=== PATIENT | male | born 1965 | race Caucasian/White ===

== ENCOUNTER 2024-05-12 00:19 | Emergency (ER) | payer SELFPAY ==
[2024-05-12] VITALS (46 sets, daily range): BP systolic 123–216; BP diastolic 80–103; PULSE 61–157; TEMP 36.5; O2SAT 92–100; BMI 28.3
--- NOTE | 2024-05-12 00:21 | CT_ITS ---
The [address] [address] Patient Name: ARLIN ZELAYA MRN: [facility]:[id number] date: 1965 Sex: M Assigned Patient Location: ED.MAIN Current Patient Location: ED.MAIN Accession/Order Number: [id number] Exam Date: 05/12/2024 00:40 Report Date: 05/12/2024 03:26 At the request of: KRUNAL VILLEDA Procedure: CT angio head EXAM: CT angio head, CT angio neck CT angio head, CT angio neck INDICATION:58 years old; right-sided weakness. Abnormality seen on noncontrast head CT. TECHNIQUE: CT angiogram of the head and neck was performed. Coronal, sagittal and 3-D reformats were created and reviewed. IV contrast Omnipaque 350 100mL. No complications . Carotid stenosis measurements were made according to the NASCET criteria. Ionizing radiation dose reduced via iterative reconstruction/FBP blend and body size kV/mA adjustment. COMPARISON: Head CT performed prior to this examination. The study is not diagnostic secondary to difficulty with timing of the bolus. Contrast is seen within the pulmonary circulation with inadequate contrast in the aortic arch and extracranial vessels, and inadequate opacification of the intracranial vessels although contrast is seen within the intracranial arteries. FINDINGS: NECK FINDINGS: AORTIC ARCH: Not diagnostically evaluated due to the absence of contrast. Vascular calcifications are present. ANTERIOR CIRCULATION: Inadequately evaluated due to the absence of contrast. There is calcific plaque in the carotid bifurcation on the left. There are multiple surgical clips in the region of the right carotid bifurcation. 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 Extensive calcific plaque is seen within the V1 and proximal V2 segments of vertebral arteries. There is inadequate opacification. No gross evidence of occlusion is seen. DEVELOPMENTAL ANOMALIES: None. OTHER: No thyroid nodule or adenopathy. HEAD BRAIN: Please see the report of the noncontrast head CT. ANTERIOR CIRCULATION: Allowing for the limitations examination, there is calcific plaque in the intrapetrous portions of both ICA. There is nonvisualization of contrast within the intrapetrous portion on the right. Calcific plaque is seen in the intracavernous and supraclinoid portions bilaterally. There is contrast seen within the intracranial termini, more dense on the left than the right. Question of retrograde filling on the right. Cross filling from left to right. A1 segments are grossly patent. M1 segments are grossly patent. However, evaluation the distal branches is suboptimal. Allowing for artifacts, there is no gross evidence of intraluminal thrombus in the region of the MCA on the left in the area of previously described abnormality. However, inadequate complete opacification is seen. There is inadequate opacification on the right in the distal branches.. POSTERIOR CIRCULATION: Calcific plaque in the V4 segments. V4 segments are grossly patent. PICA patent on the left. AICA patent on the right. Basilar artery and basilar tip are patent. SCA patent. Posterior communicating artery patent on the right. Question stenosis versus inadequate opacification of the P2 segment on the left. Distal branches are poorly opacified. DEVELOPMENTAL ANOMALIES: None. OTHER: No gross evidence of pathologic enhancement. The study is not adequate for evaluation the intracranial veins. CT/CT angio head IMPRESSION: 1. Limited examination due to difficulty with bolus timing. There is inadequate opacification of the extracranial vessels. There are findings consistent with postsurgical changes in the right carotid bifurcation with occlusion of the right cervical ICA which appears to reconstitute secondary to retrograde filling from the right posterior communicating artery and cross filling from the left than the right. 2. Dense calcific plaque in the carotid bifurcation on the left, in the V1 and proximal V2 segments of both vertebral arteries, and in the intracranial portions of the ICA bilaterally. 3. Inadequate opacification the intracranial vessels. However, on the left, no gross evidence of large vessel occlusion is seen in the proximal left MCA distribution which would correlate to the findings in the noncontrast head CT. A telephone call regarding the findings in examination was made to and acknowledged by Dr. Villeda in the emergency department at 3:20 AM on 05/12/2024. The patient was transferred to an outside institution for further care. Electronically authenticated by: SEA BROTHERS Date: 05/12/2024 03:26
--- NOTE | 2024-05-12 00:21 | XR_ITS ---
The [address] [address] Patient Name: ARLIN ZELAYA MRN: [id number] date: 1965 Sex: M Assigned Patient Location: ED.MAIN Current Patient Location: ED.MAIN Accession/Order Number: [id number] Exam Date: 05/12/2024 00:40 Report Date: 05/12/2024 02:02 At the request of: KRUNAL BROWN Procedure: XR chest 1V EXAMINATION:XR chest 1V INDICATION:stroke COMPARISON:10/16/2021 TECHNIQUE:2 frontal views of the chest are submitted. FINDINGS: The cardiomediastinal silhouette is stable. Patient is status post median sternotomy. The pulmonary vascularity is within normal limits. No acute airspace disease has developed in the lungs. There is no costophrenic angle blunting. XR/XR chest 1V IMPRESSION: No acute cardiopulmonary process. Electronically authenticated by: SONNY MAGAÑA Date: 05/12/2024 02:02
--- NOTE | 2024-05-12 00:21 | CT_ITS ---
The [address] [address] Patient Name: ARLIN ZELAYA MRN: [facility]:[id number] date: 1965 Sex: M Assigned Patient Location: ED.MAIN Current Patient Location: ED.MAIN Accession/Order Number: [id number] Exam Date: 05/12/2024 00:40 Report Date: 05/12/2024 03:26 At the request of: KRUNAL VILLEDA Procedure: CT angio neck EXAM: CT angio head, CT angio neck CT angio head, CT angio neck INDICATION:58 years old; right-sided weakness. Abnormality seen on noncontrast head CT. TECHNIQUE: CT angiogram of the head and neck was performed. Coronal, sagittal and 3-D reformats were created and reviewed. IV contrast Omnipaque 350 100mL. No complications . Carotid stenosis measurements were made according to the NASCET criteria. Ionizing radiation dose reduced via iterative reconstruction/FBP blend and body size kV/mA adjustment. COMPARISON: Head CT performed prior to this examination. The study is not diagnostic secondary to difficulty with timing of the bolus. Contrast is seen within the pulmonary circulation with inadequate contrast in the aortic arch and extracranial vessels, and inadequate opacification of the intracranial vessels although contrast is seen within the intracranial arteries. FINDINGS: NECK FINDINGS: AORTIC ARCH: Not diagnostically evaluated due to the absence of contrast. Vascular calcifications are present. ANTERIOR CIRCULATION: Inadequately evaluated due to the absence of contrast. There is calcific plaque in the carotid bifurcation on the left. There are multiple surgical clips in the region of the right carotid bifurcation. 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 Extensive calcific plaque is seen within the V1 and proximal V2 segments of vertebral arteries. There is inadequate opacification. No gross evidence of occlusion is seen. DEVELOPMENTAL ANOMALIES: None. OTHER: No thyroid nodule or adenopathy. HEAD BRAIN: Please see the report of the noncontrast head CT. ANTERIOR CIRCULATION: Allowing for the limitations examination, there is calcific plaque in the intrapetrous portions of both ICA. There is nonvisualization of contrast within the intrapetrous portion on the right. Calcific plaque is seen in the intracavernous and supraclinoid portions bilaterally. There is contrast seen within the intracranial termini, more dense on the left than the right. Question of retrograde filling on the right. Cross filling from left to right. A1 segments are grossly patent. M1 segments are grossly patent. However, evaluation the distal branches is suboptimal. Allowing for artifacts, there is no gross evidence of intraluminal thrombus in the region of the MCA on the left in the area of previously described abnormality. However, inadequate complete opacification is seen. There is inadequate opacification on the right in the distal branches.. POSTERIOR CIRCULATION: Calcific plaque in the V4 segments. V4 segments are grossly patent. PICA patent on the left. AICA patent on the right. Basilar artery and basilar tip are patent. SCA patent. Posterior communicating artery patent on the right. Question stenosis versus inadequate opacification of the P2 segment on the left. Distal branches are poorly opacified. DEVELOPMENTAL ANOMALIES: None. OTHER: No gross evidence of pathologic enhancement. The study is not adequate for evaluation the intracranial veins. CT/CT angio neck IMPRESSION: 1. Limited examination due to difficulty with bolus timing. There is inadequate opacification of the extracranial vessels. There are findings consistent with postsurgical changes in the right carotid bifurcation with occlusion of the right cervical ICA which appears to reconstitute secondary to retrograde filling from the right posterior communicating artery and cross filling from the left than the right. 2. Dense calcific plaque in the carotid bifurcation on the left, in the V1 and proximal V2 segments of both vertebral arteries, and in the intracranial portions of the ICA bilaterally. 3. Inadequate opacification the intracranial vessels. However, on the left, no gross evidence of large vessel occlusion is seen in the proximal left MCA distribution which would correlate to the findings in the noncontrast head CT. A telephone call regarding the findings in examination was made to and acknowledged by Dr. Villeda in the emergency department at 3:20 AM on 05/12/2024. The patient was transferred to an outside institution for further care. Electronically authenticated by: SEA BROTHERS Date: 05/12/2024 03:26
--- NOTE | 2024-05-12 00:22 | CT_ITS ---
The [address] [address] Patient Name: ARLIN ZELAYA MRN: [facility]:[id number] date: 1965 Sex: M Assigned Patient Location: ER Current Patient Location: ER Accession/Order Number: [id number] Exam Date: 05/12/2024 00:22 Report Date: 05/12/2024 00:43 At the request of: KRUNAL VILLEDA Procedure: CT stroke head/brain wo con EXAM: CT stroke head/brain wo con INDICATION: 58 years old; Male. Evaluate for infarction. TECHNIQUE: CT Head (ax/cor/sag reformats). Ionizing radiation dose reduced via iterative reconstruction/FBP blend and body size kV/mA adjustment. Comparison: None Motion artifacts degrade individual images. FINDINGS: POSTOPERATIVE CHANGES: None. BRAIN PARENCHYMA: No intraparenchymal or extra-axial hemorrhage. No mass effect. No midline shift or herniation. Patchy low-density is seen in the white matter without mass effect. VENTRICLES/EXTRA-AXIAL SPACES: Normal for patient's age. SINUSES/MASTOIDS: Visualized paranasal sinuses are clear. Nasal septal deviation to the right with spur formation. Mastoids and middle ears are clear. MSK: No displaced or depressed calvarial fracture. OTHER: There is asymmetric hyperdensity noted within branches of the left MCA distal to the bifurcation. This is best seen on images 19-22/series 6. Patient is scheduled for CT angiogram for further evaluation. CT/CT stroke head/brain wo con IMPRESSION: 1. Asymmetric hyperdensity within branches of the left MCA distal to the bifurcation. The appearance is consistent with intraluminal thrombus. A CT angiogram has been ordered but has not been performed at the time of this examination. 2. Nonspecific white matter changes. If there is concern for acute infarction, then MRI including diffusion imaging would be more sensitive for further evaluation. A telephone call regarding the findings in examination was made to and acknowledged by Dr. Villeda in the emergency department at 12:40 AM on 05/12/2024. Electronically authenticated by: SEA BROTHERS Date: 05/12/2024 00:43
--- NOTE | 2024-05-12 00:25 | ED.GENADUL1 ---
HPI HPI - General Adult General Chief complaint: Neuro Symptoms/Deficit Stated complaint: POSSIBLE STROKE Time Seen by Provider: 05/12/24 00:21 History of Present Illness HPI narrative: Patient presenting to the emergency department for evaluation of potential stroke. Patient states that approximately 4:00 today he noted he was having right-sided weakness. States his right arm and leg felt heavy, weak, did not want to respond as it normally does. States that he went to sleep tonight that it would just go away, he woke up just recently and it was worse. Called EMS. Per EMS blood sugar was 390, they noted the deficits that he had to the arm and leg, was called the okay him. Related Data Home Medications ?Medication ?Instructions ?Recorded ?Confirmed amlodipine 2.5 mg tablet 2.5 mg PO QDAY 05/12/24 05/12/24 clopidogrel 75 mg tablet 75 mg PO QDAY 05/12/24 05/12/24 metoprolol succinate 50 mg 50 mg PO QDAY 05/12/24 05/12/24 tablet,extended release 24 hr Allergies Allergy/AdvReac Type Severity Reaction Status Date / Time No Known Drug Allergies Allergy Verified 05/12/24 00:34 Opioid HPI Opioid Management Most Recent Opioid Data: No Data to Display Review of Systems ROS Narrative Negative unless otherwise stated in the HPI PFSH PFSH Social History Little interest or pleasure in doing things: not at all Feeling down, depressed, or hopeless: not at all Exam Narrative Exam Narrative: General: NAD, AAOx3, no distress Neck: Supple, no LAD, no bruit Respiratory: respiratory effort normal, speaks in full sentences, no tripod position, no accessory muscle use. Lungs clear to auscultation without rhonchi, wheezes, rales Cardiac: Regular rate and rhythm, no edema, regular s1/s2, no m/g/r Abdomen: Soft, ND/NT. No evidence of fluid wave. No pulsatile masses on exam, rebound tenderness, Lake sign or pain over Mcburney's point. Neuro: Speech is clear and appropriate. Normal level of consciousness. Gait and coordination are normal. 5/5 strength in all extremities, NIH stroke scale of 2, drift to the right upper extremity and right lower extremity Constitutional Vital Signs, click to edit/add: Last Vital Signs Temp 97.7 F 05/12/24 00:27 Pulse 68 05/12/24 00:40 Resp 23 H 05/12/24 00:40 BP 187/86 H 05/12/24 00:38 Pulse Ox 92 L 05/12/24 00:40 O2 Del Method Room Air 05/12/24 00:27 Course Vital Signs Vital signs: Vital Signs Temperature 97.7 F 05/12/24 00:27 Pulse Rate 69 05/12/24 00:27 Respiratory Rate 16 05/12/24 00:27 Blood Pressure 216/103 H 05/12/24 00:27 Pulse Oximetry 95 05/12/24 00:27 Oxygen Delivery Method Room Air 05/12/24 00:27 Temperature 97.7 F 05/12/24 00:27 Pulse Rate 68 05/12/24 00:40 Respiratory Rate 23 H 05/12/24 00:40 Blood Pressure 187/86 H 05/12/24 00:38 Pulse Oximetry 92 L 05/12/24 00:40 Oxygen Delivery Method Room Air 05/12/24 00:27 Medical Decision Making MDM Narrative Medical decision making narrative: MDM Patient with history as above presented with potential stroke. History obtained from patient. Patient was nontoxic, stable. Ambulatory. Exam as above. EKG reviewed. Labs reviewed. Independently reviewed imaging. Reviewed external records. Differential diagnosis considered. Overall presentation is consistent with stroke 1218 patient was seen immediately on arrival, the stroke scale of 2, sent to CT [address], vitals as noted. Patient with blood pressure 216/103. stroke activation initiated, stroke network called [address] Metzger, 325 ASA, 300 plavix, his head CT looks like early ischemic changes, would not give him those medications, permissive hypertension, do not treat blood pressure unless systolic is above 220, admit for stroke, he will look at angio and call us back if anything looks problematic 1242 D/w Dr. Roberson, no CTA noted yet but questionable assymetric enhancement MCA. No bleed 0113 D/w Ross at [facility]. CTA was reviewed, R ICA chronic, L with a little disease. Would rec xfer to [facility] lori Obrien for ischemic stroke, step down. He feels findings on CT re just prominent vessel, not thrombus. Pt is accepted for xfer at this time Final Assessment: Ischemic stroke Lab Data Labs: Lab Results 05/12/24 05/12/24 Range/Units 00:31 00:36 WBC 12.0 H (4.0-11.0) 10^3/uL RBC 6.30 H (4.70-6.10) 10^6/uL Hgb 18.4 H (14.0-18.0) g/dL Hct 54.6 H (42.0-54.0) % MCV 86.7 (80.0-94.0) fL MCH 29.2 (25.9-34.0) pg MCHC 33.7 (29.9-35.2) g/dL RDW 13.9 (11.0-15.0) % Plt Count 342 (150-450) 10^3/uL MPV 9.7 (9.5-13.5) fL Neut % (Auto) 72.2 (43.0-75.0) % Lymph % (Auto) 21.1 (20.5-60.0) % [place] % (Auto) 5.2 (1.7-12.0) % Eos % (Auto) 0.7 L (0.9-7.0) % Baso % (Auto) 0.6 (0.2-2.0) % Neut # (Auto) 8.7 H (1.4-6.5) 10^3/uL Lymph # (Auto) 2.5 (1.2-3.8) 10^3/uL [place] # (Auto) 0.6 (0.3-0.8) 10^3/uL Eos # (Auto) 0.1 (0.0-0.7) 10^3/uL Baso # (Auto) 0.1 (0.0-0.1) 10^3/uL Abs Immat Gran (auto) 0.03 (0.00-0.03) 10^3/uL Imm/Tot Granulo (auto) 0.2 (0.0-0.5) % PT 9.8 (9.0-11.6) sec INR <0.93 APTT 26.5 (22.3-36.2) sec Sodium 136 (136-145) mmol/L Potassium 3.9 (3.5-5.1) mmol/L Chloride 99 (98-107) mmol/L Carbon Dioxide 26.4 (21.0-32.0) mmol/L Anion Gap 14.5 BUN 29.0 H (7.0-18.0) mg/dL Creatinine 1.46 H (0.70-1.30) mg/dL Est GFR ( Amer) >60 (>=60 mL/min/1.73m^2) Est GFR (Non-Af Amer) 50 L (>=60 mL/min/1.73m^2) BUN/Creatinine Ratio 19.9 Glucose 460 H (74-106) mg/dL Calcium 9.6 (8.5-10.1) mg/dL Total Bilirubin 0.4 (0.2-1.0) mg/dL AST 11 L (15-37) U/L ALT 31 (16-63) U/L Alkaline Phosphatase 161 H (46-116) U/L Troponin I High Sens 20.9 (4.0-76.1) pg/mL Total Protein 8.3 H (6.4-8.2) g/dL Albumin 3.6 (3.4-5.0) g/dL Globulin 4.7 g/dL Albumin/Globulin Ratio 0.8 POC Glucose 395 H (74-106) mg/dL Discharge Plan Discharge Chief Complaint: Neuro Symptoms/Deficit Clinical Impression: Stroke Patient Disposition: [facility] Time of Disposition Decision: 01:17 Discharge Location: [facility] [place] Condition: Good Prescriptions / Home Meds: No Action metoprolol succinate 50 mg tablet extended release 24 hr 50 mg PO QDAY amlodipine 2.5 mg tablet 2.5 mg PO QDAY clopidogrel 75 mg tablet 75 mg PO QDAY Print Language: Tristanian Referrals: Savana Dubois NP [Primary Care Provider] - 1 week
[2024-05-12 00:37] LABS: Glucometer 395 mg/dL (74-106)
[2024-05-12 00:41] LABS: Basophils Absolute Auto 0.1 10^3/uL (0.0-0.1); Basophils Percent Auto 0.6 % (0.2-2.0); Eosinophils Absolute Auto 0.1 10^3/uL (0.0-0.7); Eosinophils Percent Auto 0.7 % (0.9-7.0); Hematocrit 54.6 % (42.0-54.0); Hemoglobin 18.4 g/dL (14.0-18.0); Immature Granulocytes Abs Auto 0.03 10^3/uL (0.00-0.03); Immature Granulocytes Pct Auto 0.2 % (0.0-0.5); Lymphocytes Absolute Auto 2.5 10^3/uL (1.2-3.8); Lymphocytes Percent Auto 21.1 % (20.5-60.0); Mean Corpuscular HGB Conc 33.7 g/dL (29.9-35.2); Mean Corpuscular Hemoglobin 29.2 pg (25.9-34.0); Mean Corpuscular Volume 86.7 fL (80.0-94.0); Mean Platelet Volume 9.7 fL (9.5-13.5); Monocytes Absolute Auto 0.6 10^3/uL (0.3-0.8); Monocytes Percent Auto 5.2 % (1.7-12.0); Neutrophils Absolute Auto 8.7 10^3/uL (1.4-6.5); Neutrophils Percent Auto 72.2 % (43.0-75.0); Platelet Count 342 10^3/uL (150-450); Red Cell Distribution Width 13.9 % (11.0-15.0)
[2024-05-12] MEDS: ASPIRIN 81 MG TAB.CHEW 324 MG PO (00:45)
[2024-05-12] MEDS: CLOPIDOGREL BISULFATE 75 MG TABLET 300 MG PO (00:45)
[2024-05-12 00:59] LABS: Partial Thromboplastin Time 26.5 sec (22.3-36.2); Prothrombin Time 9.8 sec (9.0-11.6)
[2024-05-12 01:00] LABS: INR <0.93
[2024-05-12 01:02] LABS: Alanine Aminotransferase 31 U/L (16-63); Albumin Globulin Ratio 0.8; Albumin Level 3.6 g/dL (3.4-5.0); Alkaline Phosphatase 161 U/L (46-116); Anion Gap 14.5; Aspartate Amino Transferase 11 U/L (15-37); BUN Creatinine Ratio 19.9; Bilirubin Total 0.4 mg/dL (0.2-1.0); Calcium 9.6 mg/dL (8.5-10.1); Carbon Dioxide 26.4 mmol/L (21.0-32.0); Chloride 99 mmol/L (98-107); Estimated GFR (African America >60 (>=60 mL/min/1.73m^2); Estimated GFR (Non-African Ame 50 (>=60 mL/min/1.73m^2); Globulin 4.7 g/dL; Glucose 460 mg/dL (74-106); Potassium 3.9 mmol/L (3.5-5.1); Sodium 136 mmol/L (136-145); Total Protein 8.3 g/dL (6.4-8.2); Troponin I High Sensitivity 20.9 pg/mL (4.0-76.1)
[2024-05-12] MEDS: METOPROLOL TARTRATE 5 MG/5 ML VIAL IVP (02:05)
--- NOTE | 2024-05-12 05:35 | ECG_ITS ---
The [facility] Test Date: 2024-05-12 Pat Name: ARLIN ZELAYA Department: Room: - Gender: Male Clinical Liaison: : 1965 Requested By: [id number] Order Number: [id number] Reading MD: ARMANI SANDERS Measurements Intervals [place] Rate: 65 P: 41 [place]: 148 QRS: 240 QRSD: 106 T: 109 QT: 434 QTc: 446 Interpretive Statements 1100 Sinus rhythm 1470 with occasional supraventricular premature complexes 2450 Right bundle branch block 3414 Cannot rule out septal myocardial infarction, age undetermined 7300 Indeterminate axis 7400 S1-S2-S3 pattern, consistent with pulmonary disease, RVH, or normal variant 9150 abnormal ECG Electronically Signed On 05-12-2024 6:46:25 EST by ARMANI SANDERS
== END 2024-05-12 06:54 | disposition short-term general hospital (02) ==
PROVIDERS: Emergency Provider Emergency Medicine; PCP Nurse Practitioner Family
DX: I63.9 Cerebral infarction, unspecified (principal); G81.91 Hemiplegia, unspecified affecting right dominant side; R29.702 NIHSS score 2
CPT/HCPCS: 36415; 70450; 70496; 70498; 71045; 80053; 84484; 85025; 85610; 85730; 86850; 86900; 86901; 93005; 96374; 99285; Q9967